=== PATIENT | male | born 1945 | race Caucasian/White ===

== ENCOUNTER 2020-05-16 19:45 | Inpatient (IN) | payer MEDICARE ==
[~2020-05-16] VITALS: Ht 165.1 cm; Wt 84.9 kg
[2020-05-16] MEDS: ENOXAPARIN 40MG/0.4ML SYRINGE (J1650 PER 10MG) SC SCH (09:00)
[2020-05-16] MEDS ORDERED: ACETAMINOPHEN 650 MG SUPP PR ONE (20:15)
--- NOTE | 2020-05-16 20:33 | REPVR ---
PROCEDURE INFORMATION: Exam: XR Chest, 1 View Exam date and time: 05/16/2020 8:25 PM Age: 74 years old Clinical indication: Shortness of breath; Additional info: Coronavirus workup TECHNIQUE: Imaging protocol: XR of the chest Views: 1 view. COMPARISON: No relevant prior studies available. FINDINGS: Lungs: Unremarkable. No consolidation. Pleural space: Unremarkable. No pleural effusion. No pneumothorax. Heart/Mediastinum: Unremarkable. No cardiomegaly. Vasculature: Uncoiled thoracic aorta. Bones/joints: Unremarkable. IMPRESSION: No acute findings. Electronically signed by: Feng Cervantes On 05/16/2020 20:32:45 PM
[2020-05-16 20:36] LABS: HEMATOCRIT 42.8 % (42.0-52.0); HEMOGLOBIN 14.3 g/dl (13.5-17.5); MEAN CORPUSCULAR HGB CONC 33.4 g/dl (32.0-36.5); MEAN CORPUSCULAR VOLUME 92.6 fl (80.0-96.0); PLATELET COUNT, AUTOMATED 105 10^3/uL (150-450); RED BLOOD COUNT 4.62 10^6/uL (4.30-6.10); WHITE BLOOD COUNT 2.4 10^3/uL (4.0-10.0)
[2020-05-16] MEDS ORDERED: cefTRIAXone SOD 2 GM in D5W MINI-BAG PLUS 50 ML IV ONE (20:45)
[2020-05-16 20:46] LABS: INR 1.13; PROTHROMBIN TIME 14.8 SECONDS (12.5-14.3)
[2020-05-16 20:47] LABS: PARTIAL THROMBOPLASTIN TIME 27.5 SECONDS (24.2-38.5)
[2020-05-16 21:02] LABS: ANISOCYTOSIS 1+; ATYPICAL LYMPH 6 % (0-5); LYMPHOCYTES 6 % (16-44); MONOCYTES 1 % (0-5); NEUTROPHILS 48 % (28-66); PLATELET ESTIMATE DECREASED (NORMAL)
[2020-05-16 21:03] LABS: HYPOCHROMASIA 1+
[2020-05-16 21:05] LABS: ALBUMIN 3.8 GM/DL (3.2-5.2); BILIRUBIN,TOTAL 2.2 MG/DL (0.2-1.0); C REACTIVE PROTEIN QUANTITATIV 4.33 MG/DL (0.00-0.30); CALCIUM LEVEL 9.4 MG/DL (8.8-10.2); CK-MB VALUE MASS 1.2 NG/ML (<3.6); CREATININE FOR GFR 1.62 MG/DL (0.70-1.30); GLOMERULAR FILTRATION RATE 44.3 (>42); MB/CK RELATIVE INDEX 0.71 (< OR =4); POTASSIUM SERUM 3.6 MEQ/L (3.5-5.1); TOTAL PROTEIN 6.7 GM/DL (6.4-8.2); TROPONIN I 0.09 NG/ML (< 0.10)
--- NOTE | 2020-05-16 21:15 | ECGEPIP ---
[facility] - ED Test Date: 2020-05-16 Pat Name: LUIS BYRNE Department: Room: - Gender: Male [employer]: jennifer : 1945 Requested By: Gena Rosen Order Number: [id number] Reading MD: Gena Rosen Measurements Intervals [place] Rate: 113 P: 53 IL: 190 QRS: 53 QRSD: 127 T: 25 QT: 319 QTc: 439 Interpretive Statements SINUS TACHYCARDIA POSSIBLE RIGHT VENTRICULAR CONDUCTION DELAY PROBABLE LATERAL MYOCARDIAL INFARCTION, OF INDETERMINATE AGE NSTTW abnormalities No prior Electronically Signed on 05-16-2020 21:15:34 EST by Gena Rosen
[2020-05-16] MEDS ORDERED: NS 1,000 ML IV ONE ×2 (22:30)
--- NOTE | 2020-05-16 22:41 | REPVR ---
PROCEDURE INFORMATION: Exam: CT Abdomen And Pelvis Without Contrast Exam date and time: 05/16/2020 10:08 PM Age: 74 years old Clinical indication: Abdominal pain; Localized; Left; Prior surgery; Surgery date: 3-7 days post-operative; Surgery type: Prostate surgery; Additional info: Left fp recent urologic procedure TECHNIQUE: Imaging protocol: Computed tomography of the abdomen and pelvis without contrast. Radiation optimization: All CT scans at this facility use at least one of these dose optimization techniques: automated exposure control; mA and/or kV adjustment per patient size (includes targeted exams where dose is matched to clinical indication); or iterative reconstruction. COMPARISON: No relevant prior studies available. FINDINGS: Mild subpleural consolidation and dependent atelectatic changes in the posterior lung bases. No significant pleural effusion. Within the limits of an unenhanced examination, the liver, spleen, pancreas and adrenals are grossly normal. Gallbladder is normally distended with no evidence of calcified gallstones. Kidneys are grossly normal in size, contour and axis. No focal renal abnormalities, ureterolithiasis or obstructive uropathy. Atherosclerotic changes identified within the abdominal aorta and aortic branch vessels with no evidence of aneurysmal dilatation. Small and large bowel loops are grossly normal. No evidence of enteric obstruction or injury. Mild stranding in the perirectal fat may represent mild proctitis. No evidence of pelvic abscess. No significant free fluid in the abdomen or pelvis. Thickening of the urinary bladder proctor likely related to under distention. Correlation with urinalysis is recommended to evaluate for possible cystitis. Prostate is mildly enlarged. Fat containing left inguinal hernia with no evidence of bowel involvement. Probable previous right inguinal hernia repair. There is been posterior fusion extending from L1 through the sacrum and iliac bones. Laminectomy defects identified throughout the lumbar spine. IMPRESSION: Mild stranding in the perirectal fat may be related to mild proctitis or manipulation from recent prostate surgery. No evidence of enteric obstruction, appendicitis or diverticulitis. No evidence of obstructive uropathy. No definite acute intra-abdominal or pelvic process on this unenhanced examination. Electronically signed by: Rico Barahona On 05/16/2020 22:40:41 PM
--- NOTE | 2020-05-16 23:16 | IPNPDOC ---
Text Note Date of Service The patient was seen on 05/16/20. NOTE Time of service 1120pm is a 74 yr old w a hx of DM and HTN who is admitted for mangement of Sepsis possibly 2/2 bacteremia/prostatitis and KELLY. rest per 's H&P VS,Fishbone, I+O VS, Fishbone, I+O Laboratory Tests 05/16/20 20:19 05/16/20 20:20 Vital Signs Date Time Temp Pulse Resp B/P (MAP) Pulse Ox O2 Delivery O2 Flow Rate FiO2 05/16/20 22:05 103.5 108 23 106/64 (78) 99 Nasal Cannula 2.0 PAMELA BRIONES MD May 16, 2020 23:16
[2020-05-16] MEDS: NS 1,000 ML IV SCH (23:46)
[2020-05-16] MEDS: PIPERACILLIN/TAZOBACTAM SOD 2.25 GM in D5W MINI-BAG PLUS 50 ML IV SCH (23:46)
[2020-05-17] VITALS (7 sets, daily range): BP systolic 98–159; BP diastolic 52–106
--- NOTE | 2020-05-17 00:04 | REPVR ---
PROCEDURE INFORMATION: Exam: US Retroperitoneal Limited, Kidneys Exam date and time: 05/16/2020 11:45 PM Age: 74 years old Clinical indication: Abnormal findings; Abnormal lab test; Abnormal kidney function lab tests; Additional info: Kye TECHNIQUE: Imaging protocol: Real-time ultrasound of the retroperitoneum with image documentation. Examination was focused on the kidneys. COMPARISON: CT ABD PELVIS W/O CONTRAST 05/16/2020 9:54 PM FINDINGS: Right kidney is grossly normal in size, echogenicity and contour, measuring 10.0 x 4.8 x 4.7 cm. Tiny exophytic cyst measuring less than 8 mm. No other focal renal abnormalities. No evidence of hydronephrosis. Left kidney is grossly normal in size, echogenicity and contour, measuring 9.4 x 5.2 x 5.1 cm. No focal renal abnormalities. No evidence of hydronephrosis. Urinary bladder is incompletely distended. Mild thickening of the proctor of the urinary bladder likely related to under distention. IMPRESSION: No focal renal abnormalities. No hydronephrosis. Additional nonemergent findings as described above. Electronically signed by: Rico Barahona On 05/17/2020 00:04:46 AM
[2020-05-17] MEDS ORDERED: DEXTROSE 50% 50 ML SYRINGE IV PRN (01:15)
[2020-05-17] MEDS ORDERED: GLUCAGON INJ 1MG VIAL SC PRN (01:15)
[2020-05-17] MEDS ORDERED: GLUCOSE 4GM CHEW TABLET PO PRN (01:15)
--- NOTE | 2020-05-17 01:21 | HPEPDOC ---
[facility] Medical History & Physical Date of Admission May 17, 2020 Date of Service: May 17, 2020 Attending Physician: PAMELA BRIONES MD History and Physical CHIEF COMPLAINT: fevers, confusion HISTORY OF PRESENT ILLNESS: Edward Lopez is a 74 YO M with history of insulin- dependent DM2, HTN who presents with new onset confusion and fevers. The patient had a prostate biopsy on 05/12/2020. He states that since that time he has been feeling well, and has been staying home. Earlier today, around 10:30 AM, the patient was noted to be confused and have a fever at home of 103 so the patient's daughter activated EMS. The patient has been having some frequent urination and blood in his urine recently but he states that this has been improving. Upon arrival, nursing notes that the patient was quite confused, not oriented to time or place. He was also noted to have a fever of 105.3. At the time of my interview the patient is no longer confused and is oriented to person, place and time. He has very little memory of the events of earlier today. PAST MEDICAL HISTORY: Insulin dependent DM2 HTN PAST SURGICAL HISTORY: Orthopaedic surgery, back Left shoulder rotator cuff repair SOCIAL HISTORY: Never smoker Denies EtOH, other illicit drugs Lives with in [place] FAMILY HISTORY: Reviewed and noncontributory ALLERGIES: Please see below. REVIEW OF SYSTEMS: Constitutional: Reports some chills ENT/Mouth: No Hearing Changes, No Ear Pain, No Nasal Congestion, No Sinus Pain, No Hoarseness, No sore throat, No Rhinorrhea, No Swallowing Difficulty Eyes: No Eye Pain, No Swelling, No Redness, No Foreign Body, No Discharge, No Vision Changes Cardiovascular: No Chest Pain, No SOB, No PND, No Dyspnea on Exertion, No Orthopnea, No Claudication, No Edema, No Palpitations Respiratory: No Cough, No Wheezing, No Dyspnea Gastrointestinal: No Nausea, No Vomiting, No Diarrhea, No Constipation, No Pain, No Heartburn, No Anorexia, No Dysphagia, No Hematochezia, No Melena, No Flatulence, No Jaundice Genitourinary: Reports elle blood in his urine Musculoskeletal: No Arthralgias, No Myalgias, No Joint Swelling, No Joint Stiffness, No Back Pain, No Neck Pain Skin: No Skin Lesions, No Pruritis, No Hair Changes, No Breast/Skin Changes, No Nipple Discharge Neuro: No Weakness, No Numbness, No Paresthesias, No Loss of Consciousness, No Syncope, No Dizziness, No Headache, No Coordination Changes, No Recent Falls Psych: No Anxiety/Panic, No Depression, No Insomnia, No Personality Changes, No Delusions Heme/Lymph: No Bruising, No Bleeding, No Transfusions History, No Lymphadenopathy Endocrine: No Polyuria, No Polydipsia, No Temperature Intolerance HOME MEDICATIONS: Please see below. PHYSICAL EXAMINATION: VITAL SIGNS: see below GENERAL: alert and oriented, in no apparent distress, pleasant and conversant in full sentences. HEENT: PERRL, EOMI, Oral mucous membranes are moist without lesions. NECK: The patient has no noted JVD. No adenopathy is appreciated. No thyromegaly CHEST/LUNGS: Lungs are clear bilaterally without rhonchi, rales, or wheezes. There is no subcutaneous air appreciated. There is no tenderness to the chest wall. HEART:Regular rate and rhythm. No murmurs, rubs, or gallops are appreciated. Distal pulses are 2+. No carotid bruits appreciated. ABDOMEN: Soft, nontender, and nondistended. Bowel sounds are positive. No organomegaly is appreciated. No masses are appreciated. There are no peritoneal signs. There is no [place] sign. EXTREMITIES: No peripheral edema. There is no focal long bone tenderness or deformity. SKIN: The patients skin is warm and dry, without rashes or lesions. PSYCHIATRIC: AAO x 3, normal mood/affect NEUROLOGIC: No obvious focal deficits LABORATORY DATA: See below. IMAGING: CXR: FINDINGS: Lungs: Unremarkable. No consolidation. Pleural space: Unremarkable. No pleural effusion. No pneumothorax. Heart/Mediastinum: Unremarkable. No cardiomegaly. Vasculature: Uncoiled thoracic aorta. Bones/joints: Unremarkable. IMPRESSION: No acute findings. CT ABD/PEL: FINDINGS: Mild subpleural consolidation and dependent atelectatic changes in the posterior lung bases. No significant pleural effusion. Within the limits of an unenhanced examination, the liver, spleen, pancreas and adrenals are grossly normal. Gallbladder is normally distended with no evidence of calcified gallstones. Kidneys are grossly normal in size, contour and axis. No focal renal abnormalities, ureterolithiasis or obstructive uropathy. Atherosclerotic changes identified within the abdominal aorta and aortic branch vesselswith no evidence of aneurysmal dilatation. Small and large bowel loops are grossly normal. No evidence of enteric obstruction or injury. Mild stranding in the perirectal fat may represent mild proctitis. No evidence of pelvic abscess. No significant free fluid in the abdomen or pelvis. Thickening of the urinary bladder proctor likely related to under distention. Correlation with urinalysis is recommended to evaluate for possible cystitis. Prostate is mildly enlarged. Fat containing left inguinal hernia with no evidence of bowel involvement. Probable previous right inguinal hernia repair. There is been posterior fusion extending from L1 through the sacrum and iliac bones. Laminectomy defects identified throughout the lumbar spine. IMPRESSION: Mild stranding in the perirectal fat may be related to mild proctitis or manipulation from recent prostate surgery. No evidence of enteric obstruction, appendicitis or diverticulitis. No evidence of obstructive uropathy. No definite acute intra-abdominal or pelvic process on this unenhanced examination. RENAL US: FINDINGS: Right kidney is grossly normal in size, echogenicity and contour, measuring 10.0 x 4.8 x 4.7 cm. Tiny exophytic cyst measuring less than 8 mm. No other focal renal abnormalities. No evidence of hydronephrosis. Left kidney is grossly normal in size, echogenicity and contour, measuring 9.4 x 5.2 x 5.1 cm. No focal renal abnormalities. No evidence of hydronephrosis. Urinary bladder is incompletely distended. Mild thickening of the proctor of the urinary bladder likely related to under distention. IMPRESSION: No focal renal abnormalities. No hydronephrosis. Additional nonemergent findings as described above. MICROBIOLOGY: Please see below. ASSESSMENT: This is a 74 YO M with history of DM2, HTN who presents with fevers, chills, confusion 4 days s/p prostate biopsy found to have KELLY and hematura concerning for acute prostatitis. PLAN: 1. Sepsis 2/2 possible acute prostatitis: Patient recently had biopsy -Confusion and fever resolved on my examination -CT Abd/pelvis concerning for mild stranding in the perirectal fat may be related to mild proctitis -Start empiric Zosyn -IV fluids NS 100/hr -UA shows 6WBC, 3+ blood -Pending blood cultures -CRP elevated at 4.33 -Lactic acid initially 2.4 2. KELLY: -FENA 3.9%, indicating intrinsic KELLY -Will review home med list. Holding nephrotoxic meds -Renal US shows no hydronephrosis or abnormalities 3. DM2: -SSI with hypoglycemic protocol DVT ppx: Lovenox DISPO: Pending clinical improvement Laboratory Data Labs 24H Laboratory Tests 2 05/16/20 20:19: Prothrombin Time 14.8H, Prothromb Time International Ratio 1.13, Activated Partial Thromboplast Time 27.5, Urine Random Creatinine 34.0, Urine Random Sodium 115, Urine Random Urea Nitrogen 217, Anion Gap 10, Glomerular Filtration Rate 44.3, Lactic Acid Level 2.4*H, Calcium Level 9.4, Total Bilirubin 2.2H, Aspartate Amino Transf (AST/SGOT) 25, Alanine Aminotransferase (ALT/SGPT) 23, Alkaline Phosphatase 102, Lactate Dehydrogenase 195, Total Creatine Kinase 170, Creatine Kinase MB 1.2, Creatine Kinase MB Relative Index 0.71, Troponin I 0.09, C-Reactive Protein, Quantitative 4.33H, Total Protein 6.7, Albumin 3.8, Albumin/Globulin Ratio 1.3 05/16/20 20:20: Neutrophils (%) (Auto) , Nucleated Red Blood Cells % (auto) 0.0, Neutrophils 48, Band Neutrophils 39H, Lymphocytes (Manual) 6L, Monocytes (Manual) 1, Atypical Lymphocytes 6H, Hypochromasia 1+, Anisocytosis 1+, Platelet Estimate DECREASED, Urine Color REDH, Urine Appearance CLOUDYH, Urine pH 7.0, Urine Specific [place] 1.008, Urine Protein 1+H, Urine Glucose (UA) NEGATIVE, Urine Ketones NEGATIVE, Urine Blood 3+H, Urine Nitrite NEGATIVE, Urine Bilirubin NEGATIVE, Urine Uro bilinogen 0.2, Urine Leukocyte Esterase NEGATIVE, Urine WBC (Auto) 6H, Urine RBC (Auto) TNTCH, Urine Hyaline Casts (Auto) 0, Urine Bacteria (Auto) NEGATIVE, Urine Squamous Epithelial Cells 0, Urine Sperm (Auto) CBC/BMP Laboratory Tests 05/16/20 20:19 05/16/20 20:20 Microbiology Microbiology 05/16/20 Respiratory Virus Panel (PCR) (ASHLEE) - Final, Complete 05/16/20 Blood Culture, Received Pending 05/16/20 Blood Culture, Received Pending Home Medications Scheduled Amlodipine Besylate (Amlodipine Besylate) 2.5 Mg Tablet, 2.5 MG PO DAILY Insulin Glargine,Hum.rec.anlog (Toujeo Solostar) 300 Unit/1 Ml Insuln.pen, 15 UNIT SC DAILY Lisinopril (Lisinopril) 30 Mg Tablet, 30 MG PO DAILY Niacin (Inositol Niacinate) (Niacin 500 mg Capsule) 500 Mg Capsule, 500 MG PO DAILY [place]-3/Dha/Epa/Fish Oil (Fish Oil 1,000 mg Softgel) 1 Each Capsule, 1 CAP PO DAILY Pravastatin Sodium (Pravastatin Sodium) 40 Mg Tablet, 60 MG PO QHS Pregabalin (Lyrica) 100 Mg Capsule, 200 MG PO TID Tamsulosin HCl (Flomax) 0.4 Mg Capsule, 0.4 MG PO QHS Allergies Coded Allergies: No Known Allergies (Unverified , 05/16/20) A-FIB/CHADSVASC A-FIB History Current/History of A-Fib/PAF?: No Current PO Anticoag Therapy: No GME ATTESTATION GME ATTESTATION My faculty preceptor for this patient encounter was physically present during the encounter and was fully available. All aspects of the patient interview, examination, medical decision making process, and medical care plan development were reviewed and approved by the faculty preceptor. The faculty preceptor is aware and concurs with the plan as stated in the body of this note and will attest to such by his/her cosignature. ATTENDING NOTE Time of service 1120pm on May 16 is a 74 yr old w a hx of DM and HTN who is admitted for mangement of Sepsis possibly 2/2 bacteremia/prostatitis and KELLY. rest per 's H&P KAVON QUINTANILLA MD May 17, 2020 00:50 PAMELA BRIONES MD May 17, 2020 05:31
[2020-05-17 02:41] LABS: HEMOGLOBIN A1c 6.2 %
[2020-05-17 07:11] LABS: HEMATOCRIT 37.7 % (42.0-52.0); HEMOGLOBIN 12.5 g/dl (13.5-17.5); MEAN CORPUSCULAR HGB CONC 33.2 g/dl (32.0-36.5); MEAN CORPUSCULAR VOLUME 93.5 fl (80.0-96.0); RED BLOOD COUNT 4.03 10^6/uL (4.30-6.10); WHITE BLOOD COUNT 13.1 10^3/uL (4.0-10.0)
[2020-05-17 07:39] LABS: ALBUMIN 2.8 GM/DL (3.2-5.2); BILIRUBIN,TOTAL 1.5 MG/DL (0.2-1.0); CALCIUM LEVEL 8.2 MG/DL (8.8-10.2); CREATININE FOR GFR 1.51 MG/DL (0.70-1.30); GLOMERULAR FILTRATION RATE 48.1 (>42); MAGNESIUM LEVEL 1.5 MG/DL (1.8-2.4); POTASSIUM SERUM 3.3 MEQ/L (3.5-5.1); TOTAL PROTEIN 5.4 GM/DL (6.4-8.2)
[2020-05-17] MEDS: PIPERACILLIN/TAZOBACTAM SOD 2.25 GM in D5W MINI-BAG PLUS 50 ML IV SCH ×4 (07:50→23:35)
[2020-05-17 07:58] LABS: PLATELET COUNT, AUTOMATED 90 10^3/uL (150-450)
[2020-05-17] MEDS: HumaLOG INSULIN (NovoLOG) PER UNIT SC SCH ×4 (08:53→19:46)
[2020-05-17] MEDS: ENOXAPARIN 40MG/0.4ML SYRINGE (J1650 PER 10MG) SC SCH ×2 (08:53→09:16)
[2020-05-17] MEDS ORDERED: PRAV40TA2 PO (09:08)
[2020-05-17] MEDS ORDERED: FLOM0.4C39 PO (09:08)
[2020-05-17] MEDS ORDERED: PREG100CA PO (09:08)
[2020-05-17] MEDS ORDERED: LISI30TA4 PO (09:08)
[2020-05-17] MEDS ORDERED: AMLO2.5T3 PO (09:08)
[2020-05-17] MEDS: NS 1,000 ML IV SCH ×2 (10:30→19:49)
--- NOTE | 2020-05-17 11:24 | IPNPDOC ---
Text Note Date of Service The patient was seen on 05/17/20. NOTE Subjective: Patient seen and examined at bedside. No acute overnight events reported. Patient has no new medical complaints this morning Objective: VITAL SIGNS: see below GENERAL: NAD, lying comfortably in bed HEENT: NC/AT Chest/Lungs: CTA B/L HEART: +S1S2, RRR ABDOMEN: soft, NT, ND, +BS EXTREMITIES: no edema Neuro: no gross focal deficits; diminished sensation RLE A/P: 74 YO M with history of DM2, HTN who presents with fevers, chills, confusion after prostate biopsy on 05/15/11, found to be septic with KELLY and hematuria concerning for acute prostatitis. #Sepsis 2/2 possible acute prostatitis - s/p recent biopsy 05/15/20 -CT Abd/pelvis concerning for mild stranding in the perirectal fat may be related to mild proctitis -Start empiric Zosyn day#1 -IV fluids NS 100/hr -UA shows 6WBC, 3+ blood -Pending blood cultures -Lactic acid initially 2.4 - resolved at 1.8 #electrolyte disturbance - continue to follow and replete as needed (K, Mag) # KELLY: -FENA 3.9%, indicating intrinsic KELLY -Renal US shows no hydronephrosis or abnormalities #DM2: -SSI with hypoglycemic protocol #DVT ppx: Lovenox DISPO: Pending clinical improvement VS,Fishbone, I+O VS, Fishbone, I+O Laboratory Tests 05/16/20 20:19 05/16/20 20:20 05/17/20 06:12 Vital Signs Date Time Temp Pulse Resp B/P (MAP) Pulse Ox O2 Delivery O2 Flow Rate FiO2 05/17/20 08:00 97.9 51 16 102/57 (72) 95 Room Air 05/17/20 03:15 2.0 I&O- Last 24 Hours up to 6 AM 05/17/20 06:00 Intake Total 2100 ml Output Total 0 ml Balance 2100 ml ROSA BURTON MD May 17, 2020 11:24
[2020-05-17] MEDS ORDERED: POTASSIUM CHLORIDE 10 MEQ SR TABLET PO ONE (11:30)
[2020-05-17] MEDS ORDERED: MAG SULF 1GM/100ML (MAG RUN) 1 GM in IV 1 EA IV ONE (11:30)
[2020-05-17] MEDS ORDERED: NIACCAP PO (12:02)
[2020-05-17] MEDS ORDERED: TOUJ1.2I SC (12:02)
[2020-05-17] MEDS ORDERED: OMEG10002 PO (12:02)
[2020-05-17 14:58] LABS: BILIRUBIN, URINE MANUAL NEGATIVE (NEGATIVE); GLUCOSE, URINE (UA) MANUAL 2+(250 MG/DL) mg/dL (NEGATIVE); KETONE, URINE MANUAL 1+ mg/dL (NEGATIVE); UROBILINOGEN, URINE MANUAL NORMAL (NORMAL)
[2020-05-17 15:00] LABS: AMORPHOUS SEDIMENT, URINE LARGE AMOUNT (NEGATIVE); BACTERIA, URINE NONE SEEN; HYALINE CAST, URINE NONE SEEN /lpf (0-1); RBC, URINE TNTC /hpf (0-3); SQUAMOUS EPITHELIAL CELL URINE NONE SEEN /hpf (SMALL AMT)
[2020-05-17] MEDS: ONDANSETRON 4MG/2ML VIAL IV PRN (17:22)
--- NOTE | 2020-05-17 23:16 | REPVR ---
PROCEDURE INFORMATION: Exam: CT Head Without Contrast Exam date and time: 05/17/2020 11:06 PM Age: 74 years old Clinical indication: Injury or trauma; Fall; Blunt trauma (contusions or hematomas) TECHNIQUE: Imaging protocol: Computed tomography of the head without contrast. Radiation optimization: All CT scans at this facility use at least one of these dose optimization techniques: automated exposure control; mA and/or kV adjustment per patient size (includes targeted exams where dose is matched to clinical indication); or iterative reconstruction. COMPARISON: No relevant prior studies available. FINDINGS: Brain: Mild decreased attenuation of the supratentorial white matter is likely secondary to chronic microvascular ischemia. No acute intracranial hemorrhage. Cerebral ventricles: Ventricular and subarachnoid spaces are age appropriate. Bones/joints: Unremarkable. No acute fracture. Paranasal sinuses: Mild paranasal sinus disease. Mastoid air cells: Visualized mastoid air cells are well aerated. Vasculature: Intracranial vascular calcification. Soft tissues: Unremarkable. IMPRESSION: No acute intracranial abnormality. Electronically signed by: Slade Vazquez On 05/17/2020 23:16:21 PM
[2020-05-18 04:00] VITALS: BP 127/60
[2020-05-18] MEDS: PIPERACILLIN/TAZOBACTAM SOD 2.25 GM in D5W MINI-BAG PLUS 50 ML IV SCH ×4 (04:02→22:13)
[2020-05-18 04:03] VITALS: BP 127/60
[2020-05-18] MEDS: NS 1,000 ML IV SCH ×2 (04:21→08:57)
[2020-05-18 05:58] LABS: HEMOGLOBIN 11.4 g/dl (13.5-17.5); MEAN CORPUSCULAR HEMOGLOBIN 30.4 pg (27.0-33.0); MEAN CORPUSCULAR HGB CONC 31.7 g/dl (32.0-36.5); RED BLOOD COUNT 3.75 10^6/uL (4.30-6.10); WHITE BLOOD COUNT 11.2 10^3/uL (4.0-10.0)
[2020-05-18 06:03] LABS: PLATELET COUNT, AUTOMATED 77 10^3/uL (150-450)
[2020-05-18 06:28] LABS: ALBUMIN 2.8 GM/DL (3.2-5.2); BILIRUBIN,TOTAL 1.8 MG/DL (0.2-1.0); CALCIUM LEVEL 8.2 MG/DL (8.8-10.2); CREATININE FOR GFR 1.42 MG/DL (0.70-1.30); GLOMERULAR FILTRATION RATE 51.6 (>42); POTASSIUM SERUM 3.8 MEQ/L (3.5-5.1); TOTAL PROTEIN 5.5 GM/DL (6.4-8.2)
[2020-05-18] MEDS: HumaLOG INSULIN (NovoLOG) PER UNIT SC SCH ×4 (07:30→21:00)
[2020-05-18 07:32] VITALS: BP 139/65
[2020-05-18] MEDS: ENOXAPARIN 40MG/0.4ML SYRINGE (J1650 PER 10MG) SC SCH (08:56)
[2020-05-18] MEDS: ACETAMINOPHEN TAB 650MG DOSE (2X325MG) PO PRN ×2 (09:32→22:14)
--- NOTE | 2020-05-18 09:37 | IPN ---
PROGRESS NOTE DATE: 05/18/2020 SUBJECTIVE: Edward is seen in the PCU, he is admitted with sepsis, suspected infection related to TRUS prostate biopsy on 05/12/2020. Feels better today, still feels weak. He is not febrile. His blood pressure has recovered. No chest pain. No shortness of breath. PHYSICAL EXAMINATION: VITAL SIGNS: Afebrile. Blood pressure 139/65. GENERAL APPEARANCE: Alert, conversant in no distress. HEART: Regular rhythm. ABDOMEN: Soft, nontender. EXTREMITIES: No peripheral edema. He slipped out of bed overnight. He has some gluteal discomfort but is not deep or prostatic. LABORATORY DATA: White count is down to 11.2, hemoglobin is 11.4, platelets are 77,000, sodium 134, potassium 3.8, BUN 24, creatinine 1.4, glucose is 117. Blood cultures show gram negative rods on preliminary, urine culture is pending. IMPRESSION: 1. Sepsis from presumed gram negative bacteremia. Continue his Zosyn until the cultures are back. Suspect E. coli, will probably change to Cephazolin tomorrow. 2. Diabetes, continue sliding scale with insulin. 3. Acute kidney injury, renal function is improved. Renal ultrasound shows no hydronephrosis.
[2020-05-18] MEDS: KCL 20MEQ IN 0.45NS 1000ML 1,000 ML IV SCH ×2 (10:26→19:15)
[2020-05-18 11:57] VITALS: BP 163/75
[2020-05-18 16:00] VITALS: BP 138/68
[2020-05-18 20:00] VITALS: BP 130/86
[2020-05-18] MEDS: ONDANSETRON 4MG/2ML VIAL IV PRN (21:01)
[2020-05-19] VITALS: BP 124/76
[2020-05-19 04:00] VITALS: BP 122/64
[2020-05-19] MEDS: PIPERACILLIN/TAZOBACTAM SOD 2.25 GM in D5W MINI-BAG PLUS 50 ML IV SCH ×4 (04:15→23:46)
[2020-05-19 05:12] LABS: HEMOGLOBIN 11.9 g/dl (13.5-17.5); MEAN CORPUSCULAR HEMOGLOBIN 30.7 pg (27.0-33.0); MEAN CORPUSCULAR HGB CONC 33.1 g/dl (32.0-36.5); PLATELET COUNT, AUTOMATED 102 10^3/uL (150-450); RED BLOOD COUNT 3.87 10^6/uL (4.30-6.10); WHITE BLOOD COUNT 7.8 10^3/uL (4.0-10.0)
[2020-05-19 05:20] LABS: ALBUMIN 2.9 GM/DL (3.2-5.2); ALT/SGPT 23 U/L (12-78); BILIRUBIN,TOTAL 1.1 MG/DL (0.2-1.0); BLOOD UREA NITROGEN 16 MG/DL (7-18); CALCIUM LEVEL 8.7 MG/DL (8.8-10.2); CARBON DIOXIDE LEVEL 26 MEQ/L (21-32); CHLORIDE LEVEL 108 MEQ/L (98-107); CREATININE FOR GFR 1.19 MG/DL (0.70-1.30); GLOMERULAR FILTRATION RATE > 60.0 (>42); GLUCOSE, FASTING 102 MG/DL (70-100); POTASSIUM SERUM 3.8 MEQ/L (3.5-5.1); SODIUM LEVEL 143 MEQ/L (136-145); TOTAL PROTEIN 5.9 GM/DL (6.4-8.2)
[2020-05-19] MEDS: HumaLOG INSULIN (NovoLOG) PER UNIT SC SCH ×4 (07:30→20:43)
[2020-05-19 08:52] VITALS: BP 138/70
[2020-05-19] MEDS: ENOXAPARIN 40MG/0.4ML SYRINGE (J1650 PER 10MG) SC SCH (08:52)
[2020-05-19] MEDS: ACETAMINOPHEN TAB 650MG DOSE (2X325MG) PO PRN ×2 (08:52→20:43)
--- NOTE | 2020-05-19 09:19 | IPN ---
PROGRESS NOTE DATE: 05/19/2020 SUBJECTIVE: Edward was seen on PCU. Feels better. No fever, no chills. I spoke at length with Lashae, Mr. Lopez's daughter, yesterday and all questions were answered. His blood cultures today have grown out Escherichia (E.) coli which is pansensitive, currently on Zosyn. He seems to be responding to this. PHYSICAL EXAMINATION: VITAL SIGNS: Afebrile. Vital signs stable, blood pressure 130/70. LUNGS: Clear. HEART: Regular rhythm. ABDOMEN: Soft, nontender. EXTREMITIES: No peripheral edema. Urine is not bloody. LABS: White count is down to 7.8, hemoglobin is 11.9, platelets 102. Sodium 143, potassium 3.8, BUN 16, creatinine 1.1, glucose is 102. Blood sugars in the 100-150 range. IMPRESSION: 1. E. coli bacteremia with sepsis sensitive to Zosyn. We will continue this. He is clinically responding. He might be able to go on oral antibiotics tomorrow. 2. Diabetes. Continue sliding scale Insulin. 3. Acute kidney injury. Renal function has improved. Acute kidney injury has resolved. 4. I plan to give Mr. Lopez's daughter Lashae a call today after rounds are completed.
[2020-05-19 12:00] VITALS: BP 142/76
[2020-05-19] MEDS: KCL 20MEQ IN 0.45NS 1000ML 1,000 ML IV SCH (15:36)
[2020-05-19 16:00] VITALS: BP 142/66
[2020-05-19 20:00] VITALS: BP 154/68
[2020-05-20] VITALS: BP 162/90
[2020-05-20 04:00] VITALS: BP 162/78
[2020-05-20] MEDS: PIPERACILLIN/TAZOBACTAM SOD 2.25 GM in D5W MINI-BAG PLUS 50 ML IV SCH (05:59)
[2020-05-20] MEDS: KCL 20MEQ IN 0.45NS 1000ML 1,000 ML IV SCH (06:00)
[2020-05-20 06:15] LABS: HEMOGLOBIN 12.7 g/dl (13.5-17.5); MEAN CORPUSCULAR HEMOGLOBIN 30.2 pg (27.0-33.0); MEAN CORPUSCULAR HGB CONC 32.6 g/dl (32.0-36.5); MEAN CORPUSCULAR VOLUME 92.6 fl (80.0-96.0); PLATELET COUNT, AUTOMATED 144 10^3/uL (150-450); RED BLOOD COUNT 4.21 10^6/uL (4.30-6.10); WHITE BLOOD COUNT 7.1 10^3/uL (4.0-10.0)
[2020-05-20 06:48] LABS: ALBUMIN 3.1 GM/DL (3.2-5.2); BILIRUBIN,TOTAL 1.2 MG/DL (0.2-1.0); CALCIUM LEVEL 9.6 MG/DL (8.8-10.2); CREATININE FOR GFR 1.25 MG/DL (0.70-1.30); GLOMERULAR FILTRATION RATE 59.8 (>42); POTASSIUM SERUM 3.7 MEQ/L (3.5-5.1); TOTAL PROTEIN 6.8 GM/DL (6.4-8.2)
[2020-05-20 08:00] VITALS: BP 158/92
[2020-05-20] MEDS: LIDOCAINE 5% (LIDODERM) PATCH TD SCH (09:01)
[2020-05-20] MEDS: ENOXAPARIN 40MG/0.4ML SYRINGE (J1650 PER 10MG) SC SCH (09:02)
[2020-05-20] MEDS: PREGABALIN 100 MG CAP (LYRICA) PO SCH ×3 (09:03→20:46)
[2020-05-20] MEDS: HumaLOG INSULIN (NovoLOG) PER UNIT SC SCH ×4 (09:03→20:46)
[2020-05-20] MEDS: TAMSULOSIN 0.4 MG CAP PO SCH (09:03)
[2020-05-20] MEDS: ACETAMINOPHEN TAB 650MG DOSE (2X325MG) PO PRN (13:10)
[2020-05-20 14:00] VITALS: BP 178/92
--- NOTE | 2020-05-20 19:32 | IPNPDOC ---
Date Seen The patient was seen on 05/20/20. Progress Note SUBJECTIVE: Repeated BCx today, on ceftriaxone. Restarted home meds. Feels improved, PT: 1-2 more sessions. OBJECTIVE: PHYSICAL EXAMINATION: VITAL SIGNS: Please see below GENERAL: NAD resting in bed, aao x3 HEENT: AT/NC, moist oral mucosa LUNGS: CTAB, no W/r/R HEART: S1S2 +, no M/R/G. ABDOMEN: Soft, nontender. EXTREMITIES: No peripheral edema. NEURO: CN intact, no focal deficits LABS: Please see below. MICROBIOLOGY: BCx x 2 sets repeated: Pending BCx x 2 sets 05/16/20: E. coli UCx: NG A/P: E. coli bacteremia possibly 2/2 to recent urologicial surgery -WBC wnl, afebrile -Micro above, f/u repeat BCx to ensure resolution of bacteremia -Changed from Zosyn to Ceftriaxone today -If neg repeat BCx, change to PO and discharge home. HTN -Restarted home medications DM type II -ISS, FS AC/HS, consistent carb diet BPH -restarted home tamsulosin DVT px -Enoxaparin DISPOSITION: PT/OT to reevaluate in AM. F/u prelim blood cultures from repeated sets, if neg discharge home on PO abx, f/u with PCP on 05/21/20. VS, I&O, 24H, Fishbone Vital Signs/I&O Vital Signs Date Time Temp Pulse Resp B/P (MAP) Pulse Ox O2 Delivery O2 Flow Rate FiO2 05/20/20 14:00 98.0 64 20 178/92 (120) 96 Room Air 05/17/20 03:15 2.0 I&O- Last 24 Hours up to 6 AM 05/20/20 06:00 Intake Total 890 ml Output Total 1825 ml Balance -935 ml Laboratory Data 24H LABS Laboratory Tests 2 05/19/20 20:36: Bedside Glucose (Misc Panel) 152H 05/20/20 05:59: Nucleated Red Blood Cells % (auto) 0.0, Anion Gap 3L, Glomerular Filtration Rate 59.8, Calcium Level 9.6, Total Bilirubin 1.2H, Aspartate Amino Transf (AST/SGOT) 25, Alanine Aminotransferase (ALT/SGPT) 26, Alkaline Phosphatase 91, Total Protein 6.8, Albumin 3.1L, Albumin/Globulin Ratio 0.8 05/20/20 11:37: Bedside Glucose (Misc Panel) 172H 05/20/20 16:36: Bedside Glucose (Misc Panel) 92 CBC/BMP Laboratory Tests 05/20/20 05:59 Microbiology Microbiology 05/20/20 Blood Culture, Received Pending 05/20/20 Blood Culture, Received Pending 05/17/20 Urine Culture - Final, Complete 05/16/20 Respiratory Virus Panel (PCR) ([facility]LEE) - Final, Complete 05/16/20 Blood Culture - Final, Complete Escherichia Coli 05/16/20 Blood Culture - Final, Complete Escherichia Coli Current Medications Current Medications Medications (Trade) Dose Ordered Sig/Cricket Route PRN Reason Start Time Stop Time Status Last Admin Dose Admin Acetaminophen (Tylenol Tab) 650 mg Q4H PRN PO PAIN OR FEVER 05/16/20 23:00 05/20/20 13:10 Amlodipine Besylate (Norvasc) 2.5 mg DAILY PO 05/20/20 09:00 05/20/20 09:03 Ceftriaxone Sodium 1 gm/ Dextrose 50 ml @ 100 mls/hr Q24H IV 05/20/20 21:00 Dextrose (Dextrose 50%) 25 ml ASDIRECTED PRN IV SEE LABEL COMMENTS 05/17/20 01:15 Enoxaparin Sodium (Lovenox) 40 mg DAILY SC 05/16/20 09:00 05/20/20 09:02 Glucagon (Glucagon) 1 mg ASDIRECTED PRN SC SEE LABEL COMMENTS 05/17/20 01:15 Glucose (Glucose) 16 GM ASDIRECTED PRN PO SEE LABEL COMMENTS 05/17/20 01:15 Home Med (Med Rec Complete!) ASDIRECTED XX 05/16/20 23:30 05/16/20 23:22 DC Home Med (Med Rec Complete!) ASDIRECTED XX 05/17/20 09:15 05/17/20 09:16 DC Insulin Human Lispro (HumaLOG INSULIN) See Protocol Table AC SC 05/17/20 07:30 05/20/20 12:09 Insulin Human Lispro (HumaLOG INSULIN) See Protocol Table QHS SC 05/17/20 21:00 Lidocaine (Lidoderm Patch) 1 patch DAILY TD 05/20/20 05:30 05/20/20 09:01 Lisinopril (Prinivil) 30 mg DAILY PO 05/20/20 09:00 05/20/20 09:02 Non-Formulary Medication ( See Comment Field Below ) REMOVE LIDODERM PATCH DAILY@ XX 05/20/20 21:00 Ondansetron HCl (ZOFRAN INJection) 4 mg Q8HP PRN IV NAUSEA OR VOMITING 05/17/20 17:15 05/18/20 21:01 Piperacillin Sod/ Tazobactam Sod 2.25 gm/Dextrose 50 ml @ 50 mls/hr Q6H IV 05/16/20 23:00 05/20/20 08:05 DC 05/20/20 05:59 Potassium Chloride/Sodium Chloride 1,000 ml @ 100 mls/hr Q10H IV 05/18/20 09:15 05/20/20 12:27 DC 05/20/20 06:00 Pravastatin Sodium (Pravachol) 60 mg QHS PO 05/20/20 21:00 Pregabalin (Lyrica) 200 mg TID PO 05/20/20 09:00 05/20/20 16:28 Sodium Chloride 1,000 ml @ 100 mls/hr Q10H IV 05/16/20 23:00 05/18/20 09:08 DC 05/18/20 08:57 Tamsulosin HCl (Flomax) 0.4 mg DAILY PO 05/20/20 09:00 05/20/20 09:03 Tamsulosin HCl (Flomax) 0.4 mg QHS PO 05/20/20 21:00 05/20/20 08:56 DC Allergies Coded Allergies: No Known Allergies (Unverified , 05/16/20) iGulia Gonsalez MD May 20, 2020 19:32
[2020-05-20] MEDS ORDERED: **NOTE PATIENT COMMENT** MISC XX SCH (21:00)
[2020-05-20] MEDS ORDERED: TAMSULOSIN 0.4 MG CAP PO SCH (21:00)
[2020-05-20] MEDS ORDERED: PRAVASTATIN 20 MG TAB PO SCH (21:00)
[2020-05-20] MEDS ORDERED: cefTRIAXone SOD 1 GM in D5W MINI-BAG PLUS 50 ML IV SCH (21:00)
[2020-05-20 22:00] VITALS: BP 165/86
[2020-05-21 06:00] VITALS: BP 155/79
[2020-05-21 08:03] LABS: HEMATOCRIT 40.9 % (42.0-52.0); HEMOGLOBIN 13.8 g/dl (13.5-17.5); MEAN CORPUSCULAR HEMOGLOBIN 31.1 pg (27.0-33.0); MEAN CORPUSCULAR HGB CONC 33.7 g/dl (32.0-36.5); MEAN CORPUSCULAR VOLUME 92.1 fl (80.0-96.0); PLATELET COUNT, AUTOMATED 173 10^3/uL (150-450); RED BLOOD COUNT 4.44 10^6/uL (4.30-6.10); WHITE BLOOD COUNT 7.6 10^3/uL (4.0-10.0)
[2020-05-21 08:33] LABS: ALBUMIN 3.3 GM/DL (3.2-5.2); ALT/SGPT 27 U/L (12-78); BLOOD UREA NITROGEN 19 MG/DL (7-18); CALCIUM LEVEL 9.7 MG/DL (8.8-10.2); CARBON DIOXIDE LEVEL 27 MEQ/L (21-32); CHLORIDE LEVEL 106 MEQ/L (98-107); GLOMERULAR FILTRATION RATE > 60.0 (>42); GLUCOSE, FASTING 116 MG/DL (70-100); POTASSIUM SERUM 3.8 MEQ/L (3.5-5.1); SODIUM LEVEL 143 MEQ/L (136-145); TOTAL PROTEIN 6.5 GM/DL (6.4-8.2)
[2020-05-21] MEDS ORDERED: LEVO500T3 PO (08:37)
[2020-05-21] MEDS: ENOXAPARIN 40MG/0.4ML SYRINGE (J1650 PER 10MG) SC SCH (09:47)
[2020-05-21] MEDS: TAMSULOSIN 0.4 MG CAP PO SCH (09:47)
[2020-05-21] MEDS: PREGABALIN 100 MG CAP (LYRICA) PO SCH (09:47)
[2020-05-21] MEDS: LIDOCAINE 5% (LIDODERM) PATCH TD SCH (09:47)
[2020-05-21 09:49] VITALS: BP 173/99
[2020-05-21] MEDS: HumaLOG INSULIN (NovoLOG) PER UNIT SC SCH ×2 (09:50→12:10)
--- NOTE | 2020-05-21 15:14 | DS.PDOC ---
Discharge Summary General Date of Admission May 16, 2020 at 22:57 Date of Discharge 05/21/20 Attending Physician: Giulia Gonsalez MD Discharge Summary HISTORY OF PRESENT ILLNESS: Patient is a 74 YO M with history of insulin-dependent DM2, HTN who presents with new onset confusion and fevers. The patient had a prostate biopsy on 05/12/2020. He states that since that time he has been feeling well, and has been staying home. Earlier today, around 10:30 AM, the patient was noted to be confused and have a fever at home of 103 so the patient's daughter activated EMS. The patient has been having some frequent urination and blood in his urine recently but he states that this has been improving. Upon arrival, nursing notes that the patient was quite confused, not oriented to time or place. He was also noted to have a fever of 105.3. At the time of my interview the patient is no longer confused and is oriented to person, place and time. He has very little memory of the events of earlier today. Patient was admitted for further evaluation HOSPITAL COURSE: Initial BCx x 2 sets grew E. coli after 24 hours, likely the cause of symptoms patient was experiencing at home. He was treated with IV abx, later transitioned to PO levofloxacin according to sensitivities. WBC wnl, he remained afebrile. UCx NG but infection could have been 2/2 to recent surgery. He was evaluated by PT who cleared him to return home with f/u with PCP. Repeat BCx returned on 05/21/20 and showed NG. He was discharged home in improved condition on 05/21/20 with additional 7 days of abx. PAST MEDICAL HISTORY: Insulin dependent DM2 HTN PAST SURGICAL HISTORY: Orthopaedic surgery, back Left shoulder rotator cuff repair SOCIAL HISTORY: Never smoker Denies EtOH, other illicit drugs Lives with in [place] FAMILY HISTORY: Reviewed and noncontributory ALLERGIES: Please see below. DISCHARGE MEDICATIONS: Please see below. PHYSICAL EXAMINATION: VITAL SIGNS: Please see below GENERAL: NAD resting in bed, aao x3 HEENT: AT/NC, moist oral mucosa LUNGS: CTAB, no W/r/R HEART: S1S2 +, no M/R/G. ABDOMEN: Soft, nontender. EXTREMITIES: No peripheral edema. NEURO: CN intact, no focal deficits LABS: Please see below. MICROBIOLOGY: BCx x 2 sets repeated: Pending BCx x 2 sets 05/16/20: E. coli UCx: NG A/P: E. coli bacteremia possibly 2/2 to recent urologicial surgery -WBC wnl, afebrile -Micro above, f/u repeat BCx were neg for growth -To continue levofloxacin x 7 days HTN -C/w home medications DM type II -consistent carb diet -C/w home toujeo BPH -C/w tamsulosin DISPOSITION: D/c home today to f/u with PCP TIME SPENT ON DISCHARGE: Greater than 30 minutes. Vital Signs/I&Os Vital Signs Date Time Temp Pulse Resp B/P (MAP) Pulse Ox O2 Delivery O2 Flow Rate FiO2 05/21/20 09:49 73 173/99 05/21/20 06:00 98.7 15 94 Room Air 05/17/20 03:15 2.0 I&O- Last 24 Hours up to 6 AM 05/21/20 06:00 Intake Total 1430 ml Output Total 200 ml Balance 1230 ml Laboratory Data Labs 24H Laboratory Tests 2 05/20/20 16:36: Bedside Glucose (Misc Panel) 92 05/20/20 20:20: Bedside Glucose (Misc Panel) 226H 05/21/20 07:43: Nucleated Red Blood Cells % (auto) 0.0, Anion Gap 10, Glomerular Filtration Rate > 60.0, Calcium Level 9.7, Total Bilirubin 1.0, Aspartate Amino Transf (AST/SGOT) 26, Alanine Aminotransferase (ALT/SGPT) 27, Alkaline Phosphatase 87, Total Protein 6.5, Albumin 3.3, Albumin/Globulin Ratio 1.0 05/21/20 11:14: Bedside Glucose (Misc Panel) 221H CBC/BMP Laboratory Tests 05/21/20 07:43 FSBS Laboratory Tests Test 05/20/20 16:36 05/20/20 20:20 05/21/20 11:14 Range/Units Bedside Glucose (Misc Panel) 92 226 221 83-110 MG/DL Microbiology Microbiology 05/20/20 Blood Culture - Preliminary, Resulted No growth after 24 hours . All specim... 05/20/20 Blood Culture - Preliminary, Resulted No growth after 24 hours . All specim... 05/17/20 Urine Culture - Final, Complete 1/22/21 Respiratory Virus Panel (PCR) ([facility]) - Final, Complete 05/16/20 Blood Culture - Final, Complete Escherichia Coli 05/16/20 Blood Culture - Final, Complete Escherichia Coli Discharge Medications Scheduled Amlodipine Besylate (Amlodipine Besylate) 2.5 Mg Tablet, 2.5 MG PO DAILY, (Reported) Insulin Glargine,Hum.rec.anlog (Toujeo Solostar) 300 Unit/1 Ml Insuln.pen, 15 UNIT SC DAILY, (Reported) Levofloxacin (Levofloxacin) 500 Mg Tablet, 500 MG PO DAILY Lisinopril (Lisinopril) 30 Mg Tablet, 30 MG PO DAILY, (Reported) Niacin (Inositol Niacinate) (Niacin 500 mg Capsule) 500 Mg Capsule, 500 MG PO DAILY, (Reported) [place]-3/Dha/Epa/Fish Oil (Fish Oil 1,000 mg Softgel) 1 Each Capsule, 1 CAP PO DAILY, (Reported) Pravastatin Sodium (Pravastatin Sodium) 40 Mg Tablet, 60 MG PO QHS, (Reported) Pregabalin (Lyrica) 100 Mg Capsule, 200 MG PO TID, (Reported) Tamsulosin HCl (Flomax) 0.4 Mg Capsule, 0.4 MG PO QHS, (Reported) Allergies Coded Allergies: No Known Allergies (Unverified , 05/16/20) Giulia Gonsalez MD May 21, 2020 15:14
== END 2020-05-21 13:49 | disposition home or self-care (01) | DRG 698 ==
LOC: M ED 20:44 → M ED INP 22:57 → M PCU 05-17 03:58 → M MSPAV 05-20 13:19
PROVIDERS: ADMIT Internal Medicine; ATTEND Internal Medicine
DX: N99.89 Other postprocedural complications and disorders of genitourinary system (principal); A41.51 Sepsis due to Escherichia coli [E. coli]; N17.9 Acute kidney failure, unspecified; E11.9 Type 2 diabetes mellitus without complications; Z79.4 Long term (current) use of insulin; I10 Essential (primary) hypertension; Z79.899 Other long term (current) drug therapy; N40.0 Benign prostatic hyperplasia without lower urinary tract symptoms